=== PATIENT | female | born 1975 ===

== ENCOUNTER 2019-07-18 10:51 | Emergency (ER) | payer MEDICARE, MEDICAID ==
[~2019-07-18] VITALS: Ht 160 cm; Wt 97.4 kg
[2019-07-18 11:40] LABS: MICROSCOPIC NOT IND
[2019-07-18 11:45] LABS: BASOPHILS # (AUTO) 0.03 x10^3/uL (0-0.1); BASOPHILS % (AUTO) 0 % (0-1); EOSINOPHILS # (AUTO) 0.14 x10^3/uL (0-0.4); EOSINOPHILS % (AUTO) 2 % (1-7); LYMPHOCYTES # (AUTO) 2.26 x10^3/uL (1-3.4); LYMPHOCYTES % (AUTO) 30 % (22-44); MD NO; MEAN CORPUSCULAR HEMOGLOBIN 31.7 pg (27.0-34.8); MEAN CORPUSCULAR HGB CONC 33.3 g/dL (32.4-35.8); MEAN CORPUSCULAR VOLUME 95.3 fL (80-100); MEAN PLATELET VOLUME 10.2 fL (7.4-10.4); MONOCYTES # (AUTO) 0.38 x10^3/uL (0.2-0.8); MONOCYTES % (AUTO) 5 % (2-9); NEUTROPHILS # (AUTO) 4.69 x10^3/uL (1.8-6.8); NEUTROPHILS % (AUTO) 63 % (42-75); PLATELET COUNT 256 x10^3/uL (130-400); RED BLOOD COUNT 5.22 x10^6/uL (3.82-5.3); RED CELL DISTRIBUTION WIDTH 13.2 % (9.6-15.2)
[2019-07-18 11:48] LABS: CULTURE INDICATED? NO
--- NOTE | 2019-07-18 11:52 | NUR ---
THIS IS A 44 YO F W/ C/O BILAT FLANK PAIN THAT RADIATES BILAT LWR ABD, EPIGASTRIC AND UPPER LEGS X12 DAYS. URINE COLLECTED AND SENT TO LAB. PATIENTS RESPIRATIONS ARE EVEN AND UNLABORED. PATIENT IS IN NO ACUTE DISTRESS. PATIENT RESTING ON GURNEY WITH FAMILY AT BEDSIDE. CALL LIGHT IN REACH. DENIES FURTHER NEEDS AT THIS TIME.
[2019-07-18 11:58] LABS: ALANINE AMINOTRANSFERASE 61 U/L (12-78); ALBUMIN 3.7 g/dL (3.4-5.0); ANION GAP 5 mmol/L (5-15); CALCIUM 8.5 mg/dL (8.5-10.1); CHLORIDE 110 mmol/L (98-107); CREATININE 0.88 mg/dL (0.55-1.02)
[2019-07-18] MEDS ORDERED: ONDANSETRON 2MG/ML, 2ML IVPush ONE (12:00)
[2019-07-18] MEDS ORDERED: HYDROmorphone 2 MG/ML, 1ML IVPush PRN (12:00)
[2019-07-18 12:01] LABS: ALKALINE PHOSPHATASE 81 U/L (45-117); BILIRUBIN,TOTAL 0.9 mg/dL (0.2-1.0)
[2019-07-18] MEDS ORDERED: ONDANSETRON 2MG/ML, 2ML ONE (12:25)
[2019-07-18] MEDS ORDERED: HYDROmorphone 1 MG/ML, 1ML INJ ONE (12:25)
--- NOTE | 2019-07-18 12:30 | NUR ---
CT CALLED TO F/U ON DELAY IN TESTING, TECH STS 3 PTS AHEAD OF THIS PT.
--- NOTE | 2019-07-18 12:34 | NUR ---
PIV STARTED. PATIENT MEDICATED PER EMAR.
--- NOTE | 2019-07-18 12:35 | NUR ---
PT AMBULATED TO THE BATHROOM W/ STEADY GAIT.
--- NOTE | 2019-07-18 12:36 | NUR ---
PT C/O JAW PAIN THAT RADIATES TO NECK. WILL NOTIFY PROVIDER.
--- NOTE | 2019-07-18 12:37 | NUR ---
PT TO CT.
[2019-07-18] MEDS ORDERED: OMNIPAQUE 350 MG/ML, 100ML BOTTLE ONE (12:49)
--- NOTE | 2019-07-18 12:52 | NUR ---
PT BACK FROM CT.
--- NOTE | 2019-07-18 13:36 | NUR ---
ALL RESULTS BACK. PT UP FOR RECHECK.
[2019-07-18] MEDS ORDERED: MAALOX/HYOSCYAMINE/LIDOCAINE 45 ML BTL ONE (13:56)
[2019-07-18] MEDS ORDERED: MAALOX/HYOSCYAMINE/LIDOCAINE 45 ML BTL PO ONE (14:00)
[2019-07-18 14:02] VITALS: BP 113/75
--- NOTE | 2019-07-18 14:02 | NUR ---
PT MEDICATED PER EMAR.
--- NOTE | 2019-07-18 14:29 | NUR ---
Patient given discharge instructions and they have confirmed that they understand the instructions. Patient ambulatory with steady gait.
== END 2019-07-18 14:29 | disposition home or self-care (01) ==
LOC: ED 14:10
DX: K29.00 Acute gastritis without bleeding (principal); F17.200 Nicotine dependence, unspecified, uncomplicated
CPT/HCPCS: 36415; 74177; 80053; 81003; 84703; 85025; 93005; 96374; 96375; 99284; J1170; J2405; Q9967

== ENCOUNTER 2019-09-05 09:32 | Emergency (ER) | payer MEDICARE, OTHER ==
[~2019-09-05] VITALS: Ht 154.9 cm; Wt 100.4 kg
--- NOTE | 2019-09-05 09:51 | NUR ---
PT AMBULATED BACK TO ROOM WITHOUT DIFFICULTY. URINE SPECIMEN COLLECTED. RV'WD POC WITH PT. ER PA IN TO SEE PT NOW.
[2019-09-05] MEDS ORDERED: AZITHROMYCIN 500 MG TABLET ONE (09:58)
[2019-09-05] MEDS ORDERED: CEFTRIAXONE 250 MG ONE (09:59)
[2019-09-05] MEDS ORDERED: LIDOCAINE-MPF 1%, 5ML ONE (09:59)
[2019-09-05] MEDS ORDERED: CEFTRIAXONE 250 MG IM ONE (10:00)
[2019-09-05] MEDS ORDERED: AZITHROMYCIN 500 MG TABLET PO ONE (10:00)
[2019-09-05 10:32] LABS: MICROSCOPIC NOT IND
[2019-09-05 10:34] LABS: CULTURE INDICATED? NO
[2019-09-05 10:51] VITALS: BP 131/73
--- NOTE | 2019-09-05 10:52 | NUR ---
D/C INSTRUCTIONS & F/U APPT'S RV'WD WITH PT, SHE VERBALIZES UNDERSTANDING. PT AMBULATED OUT OF ED WITHOUT DIFFICULTY.
== END 2019-09-05 10:54 | disposition home or self-care (01) ==
LOC: ED 10:20
DX: A74.9 Chlamydial infection, unspecified (principal); G89.29 Other chronic pain; Z90.89 Acquired absence of other organs; Z90.49 Acquired absence of other specified parts of digestive tract; Z79.899 Other long term (current) drug therapy
CPT/HCPCS: 81003; 96372; 99283; J0696

== ENCOUNTER 2020-05-10 18:28 | Emergency (ER) | payer MEDICARE, MEDICAID ==
[~2020-05-10] VITALS: Ht 157.5 cm; Wt 116.3 kg
[2020-05-10 18:34] VITALS: BP 143/60
--- NOTE | 2020-05-10 18:52 | NUR ---
PT RESTING IN CHAIR, NO OTHER COMPLAINTS AT THIS TIME. PT STATES YESTERDAY SHE WAS LAYING ON COUCH WITH MASK ON AND SHE FELT LIKE SHE WAS GASPING FOR AIR.
== END 2020-05-10 20:04 | disposition home or self-care (01) ==
LOC: ED 19:30
DX: R06.02 Shortness of breath (principal); Z20.828 Contact with and (suspected) exposure to other viral communicable diseases; R09.81 Nasal congestion; Z90.49 Acquired absence of other specified parts of digestive tract; Z90.89 Acquired absence of other organs; Z90.710 Acquired absence of both cervix and uterus; F17.200 Nicotine dependence, unspecified, uncomplicated
CPT/HCPCS: 36415; 87635; 99283

== ENCOUNTER 2021-01-26 13:36 | Emergency (ER) | payer MEDICARE, OTHER ==
[2021-01-26 14:13] LABS: BASOPHILS % (AUTO) 1 % (0-1); EOSINOPHILS % (AUTO) 3 % (1-7); LYMPHOCYTES % (AUTO) 25 % (22-44); MEAN CORPUSCULAR HEMOGLOBIN 32.3 pg (27.0-34.8); MEAN CORPUSCULAR HGB CONC 34.5 g/dL (32.4-35.8); MEAN PLATELET VOLUME 9.7 fL (7.4-10.4); MONOCYTES % (AUTO) 5 % (2-9); NEUTROPHILS % (AUTO) 66 % (42-75); PLATELET COUNT 257 x10^3/uL (130-400); RED BLOOD COUNT 5.22 x10^6/uL (3.82-5.3); RED CELL DISTRIBUTION WIDTH 13.6 % (9.6-15.2)
[2021-01-26 14:25] LABS: ALANINE AMINOTRANSFERASE 81 U/L (12-78); ALBUMIN 3.5 g/dL (3.4-5.0); ANION GAP 6 mmol/L (5-15); CHLORIDE 110 mmol/L (98-107); CREATININE 0.86 mg/dL (0.55-1.02)
[2021-01-26 14:29] LABS: ALKALINE PHOSPHATASE 102 U/L (45-117); BILIRUBIN,TOTAL 0.8 mg/dL (0.2-1.0); TOTAL PROTEIN 7.2 g/dL (6.4-8.2)
--- NOTE | 2021-01-26 14:59 | NUR ---
PT TO ROOM FROM LOBBY, GAIT SLOW AND STEADY. 45 YR OLD FEMALE HERE WITH "RASH THAT IS PAINFUL AND BURNING. OWENS/BODY ACHES AND CHILLS. (4-5 DAYS). PRIOR TO THAT STATED HAVING MASSIVE EDEMA IN FEET. PT WITH BLISTERS TO LEFT BUTTOCK FOR 2 DAYS.
[2021-01-26 15:05] VITALS: BP 126/51
--- NOTE | 2021-01-26 16:09 | NUR ---
DR TUCKER AT BEDSIDE TO CANDACE PT
--- NOTE | 2021-01-26 16:36 | NUR ---
PT DRESSED AND READY TO GO. NO IV TO DC. REVIEWED DC INSTRUCTIONS WITH PT. UNDERSTANDING VERBALIZED. PT LEFT AMB, GAIT STEADY.
== END 2021-01-26 16:38 | disposition home or self-care (01) ==
LOC: ED 15:00
DX: B02.9 Zoster without complications (principal); R53.81 Other malaise; G89.29 Other chronic pain; Z90.49 Acquired absence of other specified parts of digestive tract; Z90.89 Acquired absence of other organs; Z90.710 Acquired absence of both cervix and uterus
CPT/HCPCS: 36415; 80053; 83880; 84703; 85025; 99283